=== PATIENT | female | born 1995 | race Caucasian/White ===

== ENCOUNTER 2017-12-30 04:00 | Emergency (ER) | payer OTHER ==
[~2017-12-30] VITALS: Ht 162.6 cm; Wt 78.3 kg
[2017-12-30 05:04] LABS: MICROSCOPIC INDICATED
[2017-12-30] MEDS ORDERED: MORPHINE SULFATE 4 MG/ML, 1ML ONE (05:12)
[2017-12-30] MEDS ORDERED: FAMOTIDINE 20 MG/2 ML ONE (05:12)
[2017-12-30] MEDS ORDERED: MORPHINE SULFATE 4 MG/ML, 1ML IVPush PRN (05:30)
[2017-12-30] MEDS ORDERED: SODIUM CHLORIDE FLUSH 10ML SYR IVF ONE (05:30)
[2017-12-30] MEDS ORDERED: SODIUM CHLORIDE 0.9% 1,000ML IVBOLUS ONE (05:30)
[2017-12-30] MEDS ORDERED: FAMOTIDINE 20 MG/2 ML IVP ONE (05:30)
[2017-12-30 05:33] LABS: BASOPHILS # (AUTO) 0.05 x10^3/uL (0-0.3); BASOPHILS % (AUTO) 0 % (0-1); EOSINOPHILS # (AUTO) 0.03 x10^3/uL (0-0.8); EOSINOPHILS % (AUTO) 0 % (1-7); LYMPHOCYTES # (AUTO) 2.79 x10^3/uL (1-6.1); LYMPHOCYTES % (AUTO) 21 % (22-44); MD NO; MEAN CORPUSCULAR HEMOGLOBIN 29.8 pg (27.0-34.8); MEAN CORPUSCULAR HGB CONC 34.1 g/dL (32.4-35.8); MEAN CORPUSCULAR VOLUME 87.4 fL (80-100); MEAN PLATELET VOLUME 7.9 fL (7.4-10.4); MONOCYTES # (AUTO) 0.73 x10^3/uL (0-1.4); MONOCYTES % (AUTO) 6 % (2-9); NEUTROPHILS # (AUTO) 9.63 x10^3/uL (1.8-8.0); NEUTROPHILS % (AUTO) 73 % (42-75); PLATELET COUNT 288 x10^3/uL (130-400); RED BLOOD COUNT 4.49 x10^6/uL (3.82-5.3); RED CELL DISTRIBUTION WIDTH 12.9 % (9.6-15.2)
[2017-12-30 05:43] LABS: ANION GAP 11 mmol/L (5-15); CALCIUM 8.9 mg/dL (8.5-10.1); CHLORIDE 108 mmol/L (98-107); CREATININE 0.83 mg/dL (0.55-1.02)
[2017-12-30 05:44] LABS: ALANINE AMINOTRANSFERASE 26 U/L (12-78); ALBUMIN 3.5 g/dL (3.4-5.0)
[2017-12-30] MEDS ORDERED: ONDANSETRON ODT 4 MG PO ONE (06:00)
[2017-12-30 06:01] LABS: ALKALINE PHOSPHATASE 61 U/L (45-117); BILIRUBIN,TOTAL 0.4 mg/dL (0.2-1.0); TOTAL PROTEIN 7.5 g/dL (6.4-8.2)
[2017-12-30] MEDS ORDERED: ONDANSETRON ODT 4 MG ONE (06:27)
[2017-12-30] MEDS ORDERED: CEFTRIAXONE PMX 1GM/50ML 50 ML ONE (06:27)
[2017-12-30] MEDS ORDERED: CEFTRIAXONE PMX 1GM/50ML 50 ML IV ONE (06:30)
[2017-12-30 08:34] VITALS: BP 108/64
== END 2017-12-30 08:38 | disposition home or self-care (01) ==
LOC: ED 06:32
DX: O23.11 Infections of bladder in pregnancy, first trimester (principal); R10.13 Epigastric pain; Z3A.12 12 weeks gestation of pregnancy
CPT/HCPCS: 36415; 76700; 76801; 80053; 81001; 83690; 84702; 84703; 85025; 96361; 96365; 96375; 99285; J0696; J7030; Q0162; S0028

== ENCOUNTER 2019-11-01 10:17 | Emergency (ER) | payer OTHER ==
[~2019-11-01] VITALS: Ht 162.6 cm; Wt 77.8 kg
--- NOTE | 2019-11-01 10:18 | NUR ---
BIB AMBULANCE. PER PT "WOKE UP WITH CP, SOB AND COUGH BUT THE SOB AND COUGH ARE GONE. THEN AT 9AM PAIN IN MY RIGHT CHEST, GOES TO MY RIGHT SHOULDER, DOWN TO ELBOW AND INTO HAND, ALSO FEELS TINGLING BUT SOME OF THE SENSATION HAS COME BACK, THEN PAIN IN MY RIGHT LOW BACK AND MY RIGHT THIGH, KNEE AND TOES, ALSO FEELING TINGLING." NEURO INTACT. SPEECH CLEAR. EKG COMPLETED. NSR ON MONITOR. CONT PULSE OX, BP, CARDIAC MONITORS IN PLACE. VSS. A&OX4. CP REPRODUCABLE TO PALPATION. RADIAL AND PEDAL PULSES NORMAL AND STRONG. ASSESSMENT COMPLETED. RLE ELEVATED WITH PILLOW BEHIND KNEE BY EMS PER PT REQUEST FOR COMFORT. AWAITING EVAL BY ERP. DENIES ANY INJURY OR TRAUMA. FALL PRECAUTIONS IN PLACE. SIDE RAILS UPX2.
--- NOTE | 2019-11-01 10:28 | NUR ---
DR. GRISSOM AT BEDSIDE FOR EVALUATION, AWAITING ORDERS.
[2019-11-01] MEDS ORDERED: KETOROLAC 30 MG/1 ML IM ONE (10:30)
[2019-11-01] MEDS ORDERED: KETOROLAC 30 MG/1 ML ONE (10:35)
--- NOTE | 2019-11-01 10:38 | NUR ---
PT MEDICATED NOTED PER MD ORDER AND EMAR FOR 10/10 PAIN IN RIGHT CHEST, LOW BACK, SHOULDER, ELBOW, KNEE, THIGH. CALL LIGHT IN REACH. VSS. PT TO RAD AT THIS TIME.
--- NOTE | 2019-11-01 10:49 | NUR ---
PT BACK FROM RAD, NAD NOTED. NSR ON MONITOR. VSS. CALL LIGHT IN REACH. FALL PRECAUTIONS IN PLACE.
--- NOTE | 2019-11-01 10:52 | NUR ---
US AT BEDSIDE
--- NOTE | 2019-11-01 11:15 | NUR ---
US REMAINS AT BEDSIDE
[2019-11-01 11:39] LABS: BASOPHILS # (AUTO) 0.02 x10^3/uL (0-0.1); BASOPHILS % (AUTO) 0 % (0-1); EOSINOPHILS # (AUTO) 0.02 x10^3/uL (0-0.4); EOSINOPHILS % (AUTO) 0 % (1-7); LYMPHOCYTES # (AUTO) 1.01 x10^3/uL (1-3.4); LYMPHOCYTES % (AUTO) 14 % (22-44); MD NO; MEAN CORPUSCULAR HEMOGLOBIN 29.2 pg (27.0-34.8); MEAN CORPUSCULAR HGB CONC 33.8 g/dL (32.4-35.8); MEAN CORPUSCULAR VOLUME 86.5 fL (80-100); MEAN PLATELET VOLUME 7.6 fL (7.4-10.4); MONOCYTES # (AUTO) 0.59 x10^3/uL (0.2-0.8); MONOCYTES % (AUTO) 8 % (2-9); NEUTROPHILS # (AUTO) 5.47 x10^3/uL (1.8-6.8); NEUTROPHILS % (AUTO) 77 % (42-75); PLATELET COUNT 286 x10^3/uL (130-400); RED BLOOD COUNT 4.66 x10^6/uL (3.82-5.3); RED CELL DISTRIBUTION WIDTH 12.9 % (9.6-15.2)
[2019-11-01 11:52] LABS: ALBUMIN 4.1 g/dL (3.4-5.0); ANION GAP 7 mmol/L (5-15); CHLORIDE 109 mmol/L (98-107); CREATININE 0.81 mg/dL (0.55-1.02)
--- NOTE | 2019-11-01 11:52 | NUR ---
PT UP AND AMBULATORY TO RESTROOM WITH STEADY GAIT, LIMP NOTED TO RIGHT LEG. NEURO AND CMS INTACT. PT REPORTS CP, SHOULDER, ELBOW, KNEE, THIGH PAIN IMPROVED TO 2/10 "STARTING TO FEEL IT A LITTLE MORE AFTER I COUGHED." DISCUSSED WITH DR. GRISSOM, AWARE, NO NEW ORDERS RECEIVED. VSS. CALL LIGHT IN REACH. FALL PRECUATIONS IN PLACE. SIGNIFICANT OTHER AT BEDSIDE FOR EVALUATION. AWAITING IMER LAB DRAW. PT PROVIDED WATER PER DR. GRISSOM OKAY. TOLERATING PO WELL.
[2019-11-01 12:04] LABS: CALCIUM 9.2 mg/dL (8.5-10.1)
--- NOTE | 2019-11-01 12:35 | NUR ---
RESTING COMFORTABLY. DENIES NEED TO USE RESTROOM. REPORTS "N/T GOING AWAY AND PAIN ABOUT 1/10 BUT GOING AWAY." SR ON MONITOR. VSS. CALL LIGHT IN REACH
--- NOTE | 2019-11-01 13:06 | NUR ---
PT RESTING COMFORTABLY. "PAIN IS GONE, I FEEL SO MUCH BETTER, MY TOES AREN'T NUMB ANY MORE, MY ARM STILL FEELS LIKE IT WANTS TO FALL ASLEEP, BUT IT'S OKAY RIGHT NOW." AWAITING DDIMER, CONT PENDING. RESTING COMFORTABLY. DENIES NEED TO USE RESTROOM. VSS. CALL LIGHT IN REACH.
--- NOTE | 2019-11-01 13:45 | NUR ---
DR. GRISSOM AT BEDSIDE FOR RECHECK, AWAITING CHART AND DISCHARGE PAPERS FROM ERP
[2019-11-01 14:01] VITALS: BP 115/63
== END 2019-11-01 14:05 | disposition home or self-care (01) ==
LOC: ED 13:15
DX: R07.89 Other chest pain (principal); M79.661 Pain in right lower leg; F17.200 Nicotine dependence, unspecified, uncomplicated
CPT/HCPCS: 36415; 71046; 80048; 82040; 84703; 85025; 85379; 93005; 93971; 96372; 99285; J1885